=== PATIENT | female | born 1945 | race Caucasian/White ===

== ENCOUNTER 2019-12-10 07:36 | Observation (INO) | payer MEDICARE, OTHER, SELFPAY ==
--- NOTE | 2019-12-04 10:29 | EKG12_ITS ---
Test Reason : PRE-OP Blood Pressure : / mmHG Vent. Rate : 049 BPM Atrial Rate : 049 BPM P-R Int : 162 ms QRS Dur : 120 ms QT Int : 482 ms P-R-T Axes : 085 010 -52 degrees QTc Int : 435 ms Sinus bradycardia Right bundle branch block Abnormal ECG Confirmed by ANDERS SUN ([id number]), map editor GELA MALCOLM ([id number]) on 12/09/2019 9:44:40 AM Referred By: Jessica Moya Confirmed By:ANDERS SUN
[2019-12-04 10:37] LABS: Absolute Lymphocyte Count 1.57 X10^3/uL (0.83-4.51); Absolute Neutrophil Count 3.3 X10^3/uL (2.0-7.7); Basophil# 0.06 X10^3/uL; Basophil% 1.1 % (0-1); Eosinophil# 0.08 X10^3/uL; Eosinophils% 1.4 % (0-5); Hematocrit 37.9 % (37-47); Lymphocyte # 1.57 X10^3/ul (4.0); Lymphocyte % 28.3 % (19-41); Mean Corp Hgb Conc 31.7 g/dL (32-36); Mean Corpuscular Volume 97.9 fL (81-99); Mean Platelet Vol. 12.1 fl (6.2-12.0); Monocyte# 0.56 X10^3/uL; Monocyte% 10.1 % (0-10); NRBC Flagged by Analyzer 0 % (0-5); Neutrophil # 3.26 X10^3/uL (2.7-7.7); Neutrophil % 58.7 % (47-70); Platelet Count 202 K/mm3 (150-450); RBC Distribution Width CV 13.3 % (11.6-14.6); RBC Distribution Width SD 47.7 fl (35.1-43.9); Red Blood Count 3.87 M/mm3 (4.2-5.4); White Blood Count 5.6 K/mm3 (4.4-11.0)
[2019-12-04 11:24] LABS: Anion Gap 3 (5-15); BUN 22 mg/dL (7-18); BUN/Creat Ratio 17.5 RATIO (10-20); Calcium,Total 8.9 mg/dL (8.5-10.1); Chloride 112 mmol/L (98-107); Creatinine, Serum 1.26 mg/dL (0.55-1.02); EST Glomerular Filtration Rate 44 mL/min (>60); Est Glom Filt Rate - Afr Amer 53 mL/min (>60); Glucose 73 mg/dL (74-106); Potassium 4.3 mmol/L (3.5-5.1); Sodium Level 142 mmol/L (136-145)
[2019-12-04 11:36] LABS: Thyroid Stim Hormone (TSH) 4.13 uIU/mL (0.358-3.74)
[2019-12-10] VITALS (13 sets, daily range): BP systolic 120–149; BP diastolic 62–96; PULSE 50–59; RESP 14–18; TEMP 36.3–36.8; O2SAT 96–100; BMI 26.3
[2019-12-10] MEDS: Lactated Ringers 1,000 ML 100 ML IV ×3 (07:04→21:02)
[2019-12-10 07:24] LABS: International Normalized Ratio 1.3; Prothrombin Time (Protime)PT. 15.2 SECONDS (11.7-14.9)
[2019-12-10 07:25] LABS: Partial Thromboplast Time 28.2 Seconds (24.1-36.2)
[2019-12-10] MEDS: Cefazolin 2 GM in 0.9% Normal Saline 100 ML IV (07:28)
--- NOTE | 2019-12-10 07:33 | PCM.OPRPT ---
Problem List (1) Cystocele Status: Acute (2) Vaginal vault prolapse Status: Acute Report of Operation Date of Procedure: 12/10/19 Pre-Operative Diagnosis: cystocele, vaginal vault prolapse Post-Operative Diagnosis: same Surgery/Procedure Performed:: anterior repair with dermis, bilateral sacrospinous ligament fixation, cystoscopy Type of Anesthesia:: General Special Medications: Ancef Specimen's removed: none Estimated Blood Loss (mL): 20cc Description of Procedure: The patient is a 74-year-old female with pelvic organ prolapse who has had difficulty with voiding and recurrent urinary tract infections as a result of her prolapse. She underwent urodynamics and office cystoscopy in preparation for surgical intervention. Informed consent was obtained including a discussion of COVID-19. The patient was taken to the operating room and placed on the operating room table. Anesthesia monitored the head, neck, airway, IV access and vital signs throughout the case. Once anesthesia was appropriately administered the patient was placed into dorsal lithotomy position and was prepped and draped in usual sterile fashion. A Abdi catheter was inserted through the urethra and the bladder was drained. The anterior vaginal wall was infiltrated in the submucosa with 1% lidocaine with epinephrine. A midline vertical incision was made approximately 2 cm in length. Sharp and blunt dissection was performed until bilaterally the ischial spines were palpable and the sacrospinous ligaments were freed from surrounding tissues. Using the Capio suturing device, 2-0 Ethibond sutures were passed through the sacrospinous ligament bilaterally, taken through a piece of dermis and then through the vaginal mucosa at the apex. Was done bilaterally. The dermis was then trimmed to length and was sutured in the midline with interrupted 2-0 Vicryl both at the apex and in the bethany-bladder neck area. It was sutured laterally into the small amount of pubocervical fascia that remained. At this time the midline incision was closed using running interlocking 2-0 Vicryl. The Ethibond sutures were tied into position. A cystourethroscopy was then performed through the urethra, revealing no injury to the urinary bladder. Bilateral ureteral jets were observed. There were no mucosal abnormalities identified. At this time the cystoscope was removed, the Abdi catheter was replaced and the vagina was packed with Premarin cream and vaginal packing. The patient was then awakened and taken to the recovery room in good condition. There were no complications during this procedure. Grafts/Implants Used: Dermis - Complications None - Admit VTE Documentation VTE Present on Admission: Yes VTE Mechan Device Prophylaxis: SCD's VTE Pharm Prophylaxis ordered?: Yes
--- NOTE | 2019-12-10 09:24 | DCINST_ITS ---
Discharge Diet: No Restrictions Discharge Activity: May Not Drive, May Shower Lifting Restrictions: 5 pounds Additional Activity Instructions:: no strenuous activity, no sexual activity, no exercise, no vacuuming Call your doctor if your incision/area has: Continuous Slow Oozing, Sudden Increased Bleeding, Increased Pain/ Swelling, Increased Redness, Foul Smelling Discharge, Swelling at the incision site Call your doctor if you observe: Inability to urinate, Inability to have a bowel movement, Calf discomfort, Uncontrolled pain Additional Instructions: continue vaginal estrogen cream Allergies/Adverse Reactions: Allergies atenolol Adverse Reaction (Verified 12/10/19 06:40) TOO LOW HEART RATE carvedilol [From Coreg] Adverse Reaction (Verified 12/10/19 06:40) PASSED OUT digoxin Adverse Reaction (Verified 12/10/19 06:40) FAST HEART RATE morphine Adverse Reaction (Verified 12/10/19 06:40) RED AT SITE OF INJ, ITCHING nitrofurantoin [From Macrobid] Adverse Reaction (Verified 12/10/19 06:40) MOUTH ULCERS nitrofurantoin macrocrystalline [From Macrobid] Adverse Reaction (Verified 12/10/19 06:40) MOUTH ULCERS Sulfa (Sulfonamide Antibiotics) Adverse Reaction (Verified 12/10/19 06:40) MOUTH ULCERS AND RASH IN PERIAREA Medications to take at Discharge Levothyroxine [Synthroid] 88 mcg PO DAILY 05/01/14 Lorazepam [Ativan] 0.5 mg PO QHS #30 tablet 09/24/15 Amiodarone HCl [Pacerone] 200 mg PO QHS 09/05/16 Cetirizine HCl [Zyrtec] 10 mg PO DAILY 09/05/16 Metoprolol Tartrate [Lopressor (beta odell)] 25 mg PO BID 09/05/16 Potassium Chloride [K-Dur] 20 meq PO BID 09/05/16 Warfarin [Coumadin] 2 mg PO SUTUWETHSA 09/05/16 Cephalexin [Keflex] 500 mg PO Q8 #15 capsule 09/09/16 Atorvastatin Calcium [Lipitor] 20 mg PO QHS 12/03/19 Famotidine [Pepcid] 40 mg PO DAILY 12/03/19 Furosemide [Lasix] 40 mg PO DAILY PRN 12/03/19 Methenam/Sod Phos/Mblue/Hyoscy [Urogesic-Blue Tablet] 1 ea PO PRN PRN 12/03/19 Omeprazole [Prilosec] 20 mg PO QHS 12/03/19 Ondansetron HCl [Zofran] 4 mg PO Q6H PRN 12/03/19 Hydrocodone Bitart/Apap 5-325 [[place] 5MG-325MG] 2 tablet PO Q8H PRN PRN 7 Days #20 tablet 12/10/19 The following prescriptions were given: Hydrocodone Bitart/Apap 5-325 [[place] 5MG-325MG] 2 tablet PO Q8H PRN PRN 7 Days #20 tablet PRN Reason: Pain Transmission Status: Sent to [id number] Primary Care Physician: Evangelista Butt MD [Primary Care Provider] - Test Results: Test results from this visit will be discussed in further detail at your follow- up appointment, if applicable. Please Follow Up With: Jessica Moya MD When: call office for appt Proposed Discharge Date: 12/11/19
[2019-12-10] MEDS: HYDROcodone Bitartrate/Apap 5/325 Tablet PO ×2 (12:03→17:02)
[2019-12-10] MEDS: Cefazolin 1 GM/50 ML BAG IV (14:45)
[2019-12-10] MEDS: Metoprolol Tartrate 25 MG Tablet PO (21:09)
[2019-12-10] MEDS: Amiodarone 200 MG Tablet PO (21:13)
[2019-12-10] MEDS: Pantoprazole Sodium 20 MG Tablet PO (21:13)
[2019-12-10] MEDS: LORazepam 0.5 MG Tablet PO (21:19)
[2019-12-11] MEDS: Cefazolin 1 GM/50 ML BAG IV (00:16)
[2019-12-11 03:23] VITALS: BP 124/56; PULSE 54; RESP 16; TEMP 36.7; O2SAT 97
[2019-12-11] MEDS: HYDROcodone Bitartrate/Apap 5/325 Tablet PO (03:31)
[2019-12-11] MEDS: Levothyroxine 88 MCG Tablet PO (06:00)
--- NOTE | 2019-12-11 06:06 | NURSING ---
Pt ambulated in hallway with SBA. Tolerated well.
[2019-12-11] MEDS: Lactated Ringers 1,000 ML 100 ML IV (07:17)
[2019-12-11 07:21] VITALS: O2SAT 94
--- NOTE | 2019-12-11 08:17 | PCM.PN.BLA ---
Progress Note Up in bed. Pain controlled. Tolerating PO intake, no nausea, passing gas. No issues overnight. Vitals are good. Abdomen soft SCD's in place. Abdi and packing removed. Trial of void and home later today. Follow up in office in 2 weeks if passes trial of void. STROKE Vital Signs/Narrative: Vital Signs Pulse Ox 12/11/19 07:21 94
[2019-12-11 09:15] VITALS: BP 136/72; PULSE 55; RESP 16; TEMP 37.2; O2SAT 98
[2019-12-11 10:00] VITALS: RESP 18
--- NOTE | 2019-12-11 10:24 | CASEMGMT ---
TRINITY PEREA in to discuss RAMOS form with patient. TRINITY PEREA explained RAMOS form, patient voiced understanding. Patient signed RAMOS form, original filed in chart. Patient provided copy of signed RAMOS form. Patient had no further questions or concerns.
[2019-12-11] MEDS: Famotidine 20 MG Tablet 40 MG PO (10:51)
[2019-12-11] MEDS: Loratadine 10 MG Tablet PO (10:51)
[2019-12-11 10:52] VITALS: PULSE 55
[2019-12-11] MEDS: Metoprolol Tartrate 25 MG Tablet PO (10:52)
[2019-12-11 15:07] VITALS: BP 124/70; PULSE 57; RESP 16; TEMP 37; O2SAT 99
--- NOTE | 2020-01-07 10:27 | PCM.HP.STD ---
Problem List (1) Cystocele Status: Acute (2) Vaginal vault prolapse Status: Acute History of Present Illness Date of Admission: 12/10/19 Chief Complaint: vaginal vault prolapse, cystocele The patient is a 74 year old F [who has been struggling with pelvic organ prolapse, voiding issues including incontinence and retention along with urinary tract infections. She has elected to undergo surgical intervention after having been evaluated with urodynamics, cystoscopy and discussing the risks, benefits and alternatives including the risks of COVID-19. Past Medical History Past Medical History (Chronic Problems): Chronic Problems Osteoarthritis (Chronic) Paroxysmal atrial fibrillation (Chronic) Coronary artery disease (Chronic) Allergies atenolol Adverse Reaction (Verified 12/10/19 06:40) TOO LOW HEART RATE carvedilol [From Coreg] Adverse Reaction (Verified 12/10/19 06:40) PASSED OUT digoxin Adverse Reaction (Verified 12/10/19 06:40) FAST HEART RATE morphine Adverse Reaction (Verified 12/10/19 06:40) RED AT SITE OF INJ, ITCHING nitrofurantoin [From Macrobid] Adverse Reaction (Verified 12/10/19 06:40) MOUTH ULCERS nitrofurantoin macrocrystalline [From Macrobid] Adverse Reaction (Verified 12/10/19 06:40) MOUTH ULCERS Sulfa (Sulfonamide Antibiotics) Adverse Reaction (Verified 12/10/19 06:40) MOUTH ULCERS AND RASH IN PERIAREA Home Medications: Ambulatory Orders Medication Instructions Recorded Levothyroxine [Synthroid] 88 mcg PO DAILY 05/01/14 Lorazepam [Ativan] 0.5 mg PO QHS #30 tablet 09/24/15 Amiodarone HCl [Pacerone] 200 mg PO QHS 09/05/16 Cetirizine HCl [Zyrtec] 10 mg PO DAILY 09/05/16 Metoprolol Tartrate [Lopressor 25 mg PO BID 09/05/16 (beta odell)] Potassium Chloride [K-Dur] 20 meq PO BID 09/05/16 Warfarin [Coumadin] 2 mg PO SUTUWETHSA 09/05/16 Cephalexin [Keflex] 500 mg PO Q8 #15 capsule 09/09/16 Atorvastatin Calcium [Lipitor] 20 mg PO QHS 12/03/19 Famotidine [Pepcid] 40 mg PO DAILY 12/03/19 Furosemide [Lasix] 40 mg PO DAILY PRN 12/03/19 Methenam/Sod Phos/Mblue/Hyoscy 1 ea PO PRN PRN 12/03/19 [Urogesic-Blue Tablet] Omeprazole [Prilosec] 20 mg PO QHS 12/03/19 Ondansetron HCl [Zofran] 4 mg PO Q6H PRN 12/03/19 Surgical History: cholecystectomy, coronary bypass surgery, hysterectomy, - - Cardiac ablation ?3 for atrial fib, multiple coronary artery stents, ankle and foot surgery Psychiatric History: No pertinent psych hx 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 Denies: Dysuria Gynecological: Denies: Vaginal discharge Musculoskeletal: Denies: Muscle pain Skin: Denies: Wounds Neurological: Denies: Difficulty swallowing Endocrine: Denies: Change in Body Habitus VTE Information - Inpt Only VTE Present on Admission: Yes VTE Mechan Device Prophylaxis: SCD's VTE Pharm Prophylaxis ordered?: Yes - Physical Exam Vitals/I&O's: Vital Signs Temp Pulse Resp BP Pulse Ox 98.6 F 57 L 16 124/70 H 99 12/11/19 15:07 12/11/19 15:07 12/11/19 15:07 12/11/19 15:07 12/11/19 15:07 Oxygen Flow Rate (L/min) 2 Oxygen Delivery Method Room Air Weight: 69.5 kg Body Mass Index (BMI) 26.3 General: Alert, Oriented x3, Cooperative, No apparent distress HEENT: Atraumatic, Normocephalic Oral: Moist Mucosa Neck: Supple, Trachea Midline Lungs: Clear to auscultation, Normal air movement Cardiovascular: Regular rate, Regular Rhythm Abdomen: Soft, Non Tender Extremities: No clubbing, No cyanosis Skin: No rashes Musculoskeletal: No Muscle Wasting Neurological: Cranial nerves II-XII grossly intact Psych/Mental Status: Normal Affect, Alert and oriented to time, place, person, mood and affect Assessment/Plan All Active Problems Cystocele (Acute) Vaginal vault prolapse (Acute) Chest pain (Acute) Tachycardia (Acute) Proceed with surgical intervention as discussed with anterior repair, sacrospinous ligament fixation, use of dermis, cystoscopy. Procedure Criteria Procedure Type: Elective COVID Risk Discussion: The surgeon/proceduralist and patient have discussed in detail the risk of exposure to and/or potential harm posed by the COVID-19 virus with having a surgery/procedure at this time versus the risk of delaying the surgery/procedure. It is not possible to know either the risk of delaying the surgery or procedure or chance of getting an infection with perfect accuracy, but a joint decision was made between the patient and the surgeon/proceduralist to proceed at this time with the scheduled surgery/procedure as indicated on the consent form.
== END 2019-12-11 15:46 | disposition home or self-care (01) ==
LOC: SDC 10:30 → MS3 10:30
PROVIDERS: Anesthesiology; Admitting Provider Urology; PCP Family Medicine; Referring Provider Urology; Visit Provider Urology
PROC: (CPT 57260; principal; 2019-12-10 07:15)
DX: N81.10 Cystocele, unspecified (principal); Z11.59 Encounter for screening for other viral diseases; M19.90 Unspecified osteoarthritis, unspecified site; I48.0 Paroxysmal atrial fibrillation; I25.10 Atherosclerotic heart disease of native coronary artery without angina pectoris; I45.10 Unspecified right bundle-branch block; R00.1 Bradycardia, unspecified; K44.9 Diaphragmatic hernia without obstruction or gangrene; E78.00 Pure hypercholesterolemia, unspecified; Z87.19 Personal history of other diseases of the digestive system; Z79.899 Other long term (current) drug therapy; Z79.01 Long term (current) use of anticoagulants; E07.9 Disorder of thyroid, unspecified
CPT/HCPCS: 00942; 57240; 36415; 80048; 84443; 85025; 85610; 85730; 87635; 93005; 94799; 96361; 96365; 96366; 99218; 99251; J7120; G0378; G0379; G0463; J2405; U0003

== ENCOUNTER → 2020-12-01 14:37 | Outpatient (CLI) | payer MEDICARE, SELFPAY ==
[2019-12-10 10:38] VITALS: BMI 26.3
[2020-12-01 17:59] LABS: Absolute Lymphocyte Count 1.37 X10^3/uL (0.83-4.51); Absolute Neutrophil Count 4.1 X10^3/uL (2.0-7.7); Basophil# 0.05 X10^3/uL; Basophil% 0.8 % (0-1); Eosinophil# 0.07 X10^3/uL; Eosinophils% 1.1 % (0-5); Hematocrit 36.7 % (37-47); Hemoglobin 11.4 g/dL (12.0-15.0); Lymphocyte # 1.37 X10^3/ul (0.83-4.51); Lymphocyte % 21.9 % (19-41); Mean Corp Hgb Conc 31.1 g/dL (32-36); Mean Corpuscular Hgb 29.8 pg (27.0-32.0); Mean Corpuscular Volume 96.1 fL (81-99); Mean Platelet Vol. 11.5 fl (6.2-12.0); Monocyte% 11.2 % (0-10); NRBC Flagged by Analyzer 0 % (0-5); Neutrophil # 4.05 X10^3/uL (2.7-7.7); Neutrophil % 64.5 % (47-70); Platelet Count 227 K/mm3 (150-450); RBC Distribution Width CV 13.2 % (11.6-14.6); RBC Distribution Width SD 46.5 fl (35.1-43.9); Red Blood Count 3.82 M/mm3 (4.2-5.4); White Blood Count 6.3 K/mm3 (4.4-11.0)
[2020-12-01 18:22] LABS: ALB/GLOB Ratio 0.9 RATIO (0.9-2.4); AST(SGOT) 19 U/L (15-37); Alanine Aminotransfer ALT/SGPT 14 U/L (13-56); Albumin, Serum 3.5 g/dL (3.2-5.0); Alkaline Phosphatase 106 U/L (45-117); Anion Gap 5 (5-15); BUN 22 mg/dL (7-18); BUN/Creat Ratio 19.5 RATIO (10-20); Calcium,Total 8.9 mg/dL (8.5-10.1); Chloride 109 mmol/L (98-107); Creatinine, Serum 1.13 mg/dL (0.55-1.02); EST Glomerular Filtration Rate 50 mL/min (>60); Est Glom Filt Rate - Afr Amer 60 mL/min (>60); Globulin 4.1 g/dL (2.2-4.2); Glucose 92 mg/dL (74-106); Protein, Total 7.6 g/dL (6.4-8.2); Sodium Level 140 mmol/L (136-145)
== END ==
PROVIDERS: PCP Family Medicine; Referring Provider Urology; Visit Provider Urology
DX: N39.0 Urinary tract infection, site not specified (principal)
CPT/HCPCS: 36415; 80053; 85025

== ENCOUNTER → 2022-06-29 | Outpatient (CLI) | payer MEDICARE, SELFPAY ==
--- NOTE | 2022-06-29 15:00 | CT_ITS ---
STUDY: CT ABDOMEN AND PELVIS WITH CONTRAST REASON FOR EXAM: Female, 76 years old. Diffuse abdominal pain, possible colitis RADIATION DOSAGE (If Supplied By Facility): CTDIvol = ( 12.07 ) mGy, DLP = ( 577.14 ) mGycm TECHNIQUE: Transaxial images were obtained from the dome of the diaphragm to the symphysis pubis without oral contrast. Oral and amp;amp; IV Breeza Neutral and amp;amp; 100mL Isovue-370 was administered. Sagittal and coronal images were reconstructed. Individualized dose optimization techniques were used for this CT. COMPARISON: None. FINDINGS: There are chronic interstitial fibrotic changes of the lung bases. There has been a remote CABG. Pacer leads noted along the base of the heart. Diffuse fatty infiltration of liver is noted without a discrete lesion. There are surgical clips in the gallbladder fossa consistent with a prior cholecystectomy. Normal spleen. Normal pancreas. Normal bilateral adrenal glands. Normal right kidney. Normal left kidney. The stomach is fluid distended without wall thickening. There are nondistended fluid filled small and large bowel loops in all 4 quadrants of the abdomen consistent with a diffuse enteritis. There are a few scattered sigmoid diverticula without CT evidence of acute diverticulitis. There is no abnormal separation of bowel loops to suspect an acute inflammatory process there is no submucosal thickening or induration of the mesenteric fat. Appendix not visualized Normal abdominal aorta. Normal inferior vena cava. Normal retroperitoneum. Normal urinary bladder. There is absence of the uterus consistent with a prior hysterectomy. There is a small midline ventral hernia containing fat. Bony structures show degenerative change. CT/Abdomen/Pelvis WITH Contrast IMPRESSION: Nondistended fluid-filled stomach, small and large bowel loops in all 4 quadrants of the abdomen consistent with diffuse enteritis. No perforation abscess or fistula noted. No induration of the mesenteric fat or suspicious submucosal thickening of bowel loops. Fatty liver without a discrete lesion No free intraperitoneal fluid, air, or suspicious adenopathy Degenerative bony changes Electronically Signed: Fran Carter MD at 8:23 EDT ,
[2022-06-29 15:36] LABS: CREATININE FINGERSTICK < 0.9 mg/dL (0.55-1.02); EGFR FINGERSTICK > 60.0000 mL/min (>60)
== END | disposition home or self-care (01) ==
LOC: CT 14:57
PROVIDERS: PCP Internal Medicine; Referring Provider Internal Medicine Gastroenterology; Visit Provider Internal Medicine Gastroenterology
DX: K50.913 Crohn's disease, unspecified, with fistula (principal); K62.89 Other specified diseases of anus and rectum
CPT/HCPCS: 74177; Q9967

== ENCOUNTER 2023-07-26 08:46 | Day surgery (SDC) | payer MEDICARE, SELFPAY ==
[2023-07-26] VITALS (7 sets, daily range): BP systolic 116–133; BP diastolic 67–84; PULSE 70–86; RESP 16–17; TEMP 36.1–36.4; O2SAT 97–99; BMI 22.3
[2023-07-26 09:09] LABS: INR Fingerstick 1.6; Prothrombin Time Fingerstick 17.7 SEC (11.7-14.9)
[2023-07-26] MEDS: Lactated Ringers 1,000 ML 15 ML IV (09:26)
[2023-07-26 10:14] LABS: International Normalized Ratio 1.5; Prothrombin Time (Protime)PT. 17.8 SECONDS (11.7-14.9)
--- NOTE | 2023-07-26 10:49 | HP.PCM_ITS ---
HPI - General General Date of Service: 07/26/23 Chief Complaint: Severe frequency and urgency HPI Narrative EDUARDO ADAM, is a 77 F who presents for injection of Botox into the bladder for urgency and frequency refractory to medical therapy. [facility] Medical History Anxiety Cardiology follow-up encounter Easy bruising Gastric reflux High cholesterol History of atrial fibrillation History of Crohn's disease History of echocardiogram History of IBS History of pacemaker Non-smoker Thyroid disease Wears dentures Wears glasses Home Medications lorazepam 0.5 mg tablet 0.5 mg PO QHS ##30 09/24/15 [Rx Last Taken 07/25/23] cetirizine 10 mg capsule (Zyrtec) 10 mg PO DAILY PRN allergy symptoms 09/05/16 [History Last Taken 07/25/23] atorvastatin 20 mg tablet 20 mg PO QHS 12/03/19 [History Last Taken 07/25/23] famotidine 40 mg tablet 40 mg PO DAILY 12/03/19 [History Last Taken 07/26/23] furosemide 40 mg tablet 40 mg PO DAILY PRN water retention 12/03/19 [History Last Taken 07/25/23] methenamine 81.6 mg-sod phos 40.8 mg-methylene blue 0.12mg-hyos tablet 1 ea PO PRN PRN Bladder Spasm 12/03/19 [History Last Taken 07/25/23] omeprazole 20 mg capsule,delayed release 20 mg PO QHS 12/03/19 [History Last Taken 07/26/23] ondansetron HCl 4 mg tablet 4 mg PO Q6H PRN Nausea 12/03/19 [History Last Taken Unknown] buspirone 10 mg tablet 10 mg PO BID ANXIETY 07/11/23 [History Last Taken 07/26/23] levothyroxine 88 mcg tablet 88 mcg PO DAILY 07/11/23 [History Last Taken 07/26/23] metoprolol succinate 25 mg tablet,extended release 24 hr 12.5 mg PO DAILY 07/11/23 [History Last Taken 07/25/23] potassium chloride 20 mEq tablet,extended release(part/cryst) 20 meq PO .COMPLEX 07/11/23 [History Last Taken 07/25/23] warfarin 2 mg tablet 4 mg PO DAILY 03/26/24 [History Last Taken Unknown] Allergy/AdvReac Type Severity Reaction Status Date / Time atenolol AdvReac TOO LOW Verified 07/26/23 09:25 HEART RATE carvedilol [From Coreg] AdvReac PASSED Verified 07/26/23 09:25 OUT digoxin AdvReac FAST Verified 07/26/23 09:25 HEART RATE morphine AdvReac RED AT Verified 07/26/23 09:25 SITE OF INJ, ITCHING nitrofurantoin AdvReac MOUTH Verified 07/26/23 09:25 [From Macrobid] ULCERS nitrofurantoin AdvReac MOUTH Verified 07/26/23 09:25 macrocrystalline ULCERS [From Macrobid] Sulfa (Sulfonamide AdvReac MOUTH Verified 07/26/23 09:25 Antibiotics) ULCERS AND RASH IN PERIAREA Surgical History History of ankle surgery History of cholecystectomy History of exploratory laparotomy History of foot surgery History of hysterectomy History of knee joint replacement History of open heart surgery History of surgery History of surgery on wrist Social History Smoking Status: Never smoker Vital Signs Vital Signs Vital Signs: 07/26/23 09:27 07/26/23 09:27 Temperature 97.6 F L Temperature Source Temporal Pulse Rate 75 Respiratory Rate 17 Respiratory Pattern Normal Blood Pressure 133/84 H Blood Pressure Mean 100 Blood Pressure Source Monitor Blood Pressure Position Semi-Fowlers Blood Pressure Location Left Arm Pulse Ox 99 Oxygen Delivery Method Room Air Weight Weight: 59 kg Body Mass Index (BMI) 22.3 Results Lab / Micro Data Labs: Laboratory Results - last 24 hr 07/26/23 09:07: POC PT 17.7 H, INR 1.6 07/26/23 09:23: PT 17.8 H, INR 1.5
--- NOTE | 2023-07-26 10:50 | DCINST_ITS ---
Discharge Instructions Diet Discharge Diet: No restrictions Activity Discharge Activity: Return to Normal Activity and May Not Drive (while taking narcotic pain medications.) Dressing / Incision Call your doctor if you observe: Fever of 101 or Higher Follow Up Care Please Follow Up With: Mina Bustamante MD When: Call [phone] for an appointment Test Results: Test results from this visit will be discussed in further detail at your follow- up appointment, if applicable. Discharge Plan Admission Attending Provider: Mina Bustamante Primary Care Provider: Elle Kumar Discharge Orders/Prescriptions Prescriptions: No Action lorazepam 0.5 MG tablet 0.5 mg PO QHS Qty: 30 0RF Zyrtec 10 MG capsule 10 mg PO DAILY PRN (Reason: allergy symptoms) furosemide 40 MG tablet 40 mg PO DAILY PRN (Reason: water retention) atorvastatin 20 MG tablet 20 mg PO QHS ondansetron HCl 4 MG tablet 4 mg PO Q6H PRN (Reason: Nausea) famotidine 40 MG tablet 40 mg PO DAILY omeprazole 20 MG capsule 20 mg PO QHS methen-sod phos-meth blue-hyos 1 EACH tablet 1 ea PO PRN PRN (Reason: Bladder Spasm) metoprolol succinate 25 mg tablet extended release 24 hr 12.5 mg PO DAILY levothyroxine 88 mcg tablet 88 mcg PO DAILY Patient Comments: TAKE 1 TABLET BY MOUTH ONCE DAILY potassium chloride 20 mEq tablet,ER particles/crystals 20 meq PO .COMPLEX Patient Comments: TAKE 1 TABLET BY MOUTH THREE TIMES DAILY Rx Instructions: 20 mEq orally 40MG AFTER BREAKFAST, 20 MG AFTER SUPPER; warfarin 2 mg tablet 4 mg PO DAILY buspirone 10 mg tablet 10 mg PO BID Patient Comments: TAKE 1 TABLET BY MOUTH TWICE DAILY Referrals / Follow Up: Elle Kumar MD [Primary Care Provider] - Disposition Disposition (needs filled in before D/C Order can be placed): Home, Self Care
[2023-07-26] MEDS: Cefazolin 2 GM in 0.9% Normal Saline (100mL Bag) 100 ML IV (11:10)
[2023-07-26] MEDS: Botulinum Toxin A 100 Units Vial IJ (11:23)
[2023-07-26] MEDS: 0.9% Normal Saline (Pres. free 10 ML Vial (11:23)
--- NOTE | 2023-07-26 11:24 | PCM.OPRPT ---
Report of Operation Date of Procedure: 07/26/23 Pre-Operative Diagnosis: Overactive bladder and urge incontinence Post-Operative Diagnosis: Same Surgery/Procedure Performed:: Cystoscopy injection of Botox of bladder 100 units Description of Surgical Findings:: Patient has a history of an urge incontinence which is failed conservative measures and medical therapy. Today the patient presents to the hospital for an injection of Botox into the bladder. The patient understands the risk of the procedure involved bleeding, infection, paralytic bladder and failure to empty the bladder. The possibility of needing a catheter or self intermittent catheterization of the bladder is not able to function properly. The risk of infection and bleeding and the risk of anesthesia was discussed with the patient. Patient signed the consent form and we proceeded to the operating room. Patient was taken back to the operating room after induction of anesthesia, the patient was placed supine on the table in the legs were placed in dorsolithotomy position. The genitals and urethra were prepped and draped in usual sterile fashion. Using a 21 English offset cystoscope I went into the bladder via the urethra. The bladder was inspected. The trigone was normal. The left and right ureter orifice were identified. On the back table the Botox medication was prepared per the high lead yarder's instruction, a total of 100 units of Botox was prepared. We then used a Botox needle through the cystoscope and then injected 0.5 cc of Botox solution into each site going through a matrix pattern in the back of the bladder to inject about every centimeter across the back of the bladder in several layers avoiding the trigone. After a total of 100 units of Botox was injected into the bladder there was minimal bleeding. The bladder was drained. The patient's anesthetic was reversed and the patient was taken back to the PACU in stable condition. Surgeon: Mina Bustamante Type of Anesthesia: Local and MAC and Topical Anesth Admit VTE Documentation VTE Present on Admission: No VTE Mechan Device Prophylaxis: SCD's VTE Pharm Prophylaxis ordered?: No
== END 2023-07-26 12:44 | disposition home or self-care (01) ==
LOC: SDC 08:53 → AC 08:54
PROVIDERS: Anesthesiology; PCP Internal Medicine; Referring Provider Internal Medicine; Visit Provider Urology
PROC: 3E0K8GC Introduction of Other Therapeutic Substance into Genitourinary Tract, Via Natural or Artificial Opening Endoscopic (ICD-10-PCS; CPT 52287; principal; 2023-07-26 11:15)
DX: N39.41 Urge incontinence (principal); I48.91 Unspecified atrial fibrillation; E78.00 Pure hypercholesterolemia, unspecified; N32.81 Overactive bladder; Z79.01 Long term (current) use of anticoagulants; Z95.0 Presence of cardiac pacemaker; I44.7 Left bundle-branch block, unspecified; Z90.710 Acquired absence of both cervix and uterus; Z90.49 Acquired absence of other specified parts of digestive tract; Z87.19 Personal history of other diseases of the digestive system; F41.9 Anxiety disorder, unspecified; R23.3 Spontaneous ecchymoses
CPT/HCPCS: 51715; 52287; 00910; 36416; 85610; J7120; J0585; J2405; J3490

== ENCOUNTER → 2023-08-10 | Outpatient (CLI) | payer MEDICARE, SELFPAY ==
[2023-08-10 16:23] LABS: Hematocrit 36.2 % (37-47); Hemoglobin 11.5 g/dL (12.0-15.0); Mean Corp Hgb Conc 31.8 g/dL (32-36); Mean Corpuscular Hgb 30.3 pg (27.0-32.0); Mean Corpuscular Volume 95.3 fL (81-99); Mean Platelet Vol. 11.2 fl (6.2-12.0); Platelet Count 219 K/mm3 (150-450); RBC Distribution Width CV 13.8 % (11.6-14.6); RBC Distribution Width SD 48.2 fl (35.1-43.9); White Blood Count 5.1 K/mm3 (4.4-11.0)
[2023-08-10 17:00] LABS: Anion Gap 7 (5-15); BUN 25 mg/dL (7-18); BUN/Creat Ratio 26.5 RATIO (10-20); Calcium,Total 9.1 mg/dL (8.5-10.1); Chloride 106 mmol/L (98-107); Creatinine, Serum 0.94 mg/dL (0.55-1.02); EST Glomerular Filtration Rate 61 mL/min (>60); Est Glom Filt Rate - Afr Amer 73 mL/min (>60); Glucose 80 mg/dL (74-106); Potassium 3.8 mmol/L (3.5-5.1); Sodium Level 140 mmol/L (136-145)
[2023-08-10 17:22] LABS: International Normalized Ratio 2.7; Prothrombin Time (Protime)PT. 28.6 SECONDS (11.7-14.9)
== END | disposition home or self-care (01) ==
LOC: LAB 14:57
PROVIDERS: PCP Internal Medicine
DX: I48.91 Unspecified atrial fibrillation (principal)
CPT/HCPCS: 36415; 80048; 85027; 85610

== ENCOUNTER → 2023-08-29 | Outpatient (CLI) | payer MEDICARE, SELFPAY | END | disposition home or self-care (01) | PROVIDERS: PCP Internal Medicine; Referring Provider Urology; Visit Provider Urology | DX: N30.00 Acute cystitis without hematuria (principal) | CPT/HCPCS: 87077; 87086; 87088; 87186 ==